=== PATIENT | male | born 2000 | race Two or more races ===

== ENCOUNTER 2021-07-21 15:08 | Emergency (ER) | payer SELFPAY ==
[~2021-07-21] VITALS: Ht 177.8 cm; Wt 81.6 kg
[2021-07-21 16:55] VITALS: BP 123/86
[2021-07-21] MEDS ORDERED: IBUPROFEN 600 MG TAB PO ONE (17:00)
[2021-07-21] MEDS ORDERED: cefTRIAXone SOD 1,000 MG VL IM ONE (17:00)
[2021-07-21] MEDS ORDERED: IBUP800T27 PO (17:03)
[2021-07-21] MEDS ORDERED: CLIN300C8 PO (17:03)
[2021-07-21] MEDS ORDERED: ONDANSETRON ODT 4 MG TAB PO ONE (17:30)
== END 2021-07-21 17:42 | disposition home or self-care (01) ==
LOC: ER 15:08
DX: K04.7 Periapical abscess without sinus (principal)
CPT/HCPCS: 96372; 99283; J0696; Q0162